=== PATIENT | male | born 1995 | race Two or more races ===

== ENCOUNTER 2024-07-29 17:50 | Emergency (ER) | payer OTHER ==
[~2024-07-29] VITALS: Ht 177.8 cm; Wt 108.9 kg
[2024-07-29] MEDS ORDERED: CIPROFLOXACIN IN 5 % DEXTROSE 400 MG/200 ML PIGGYBAG IV ONE ×2 (18:45→18:49)
[2024-07-29] MEDS ORDERED: CIPRO500 MG PO (18:45)
== END 2024-07-29 21:03 | disposition home or self-care (01) ==
LOC: ER 17:51
DX: S90.412A Abrasion, left great toe, initial encounter (principal); W19.XXXA Unspecified fall, initial encounter; Y93.89 Activity, other specified; Y92.89 Other specified places as the place of occurrence of the external cause